=== PATIENT | male | born 1945 | race Caucasian/White ===

== ENCOUNTER 2022-10-31 12:00 | Emergency (ER) | payer OTHER ==
[2022-10-31 12:14] VITALS: BP 156/91; PULSE 85; RESP 18; TEMP 97.6; BMI 20.9
== END 2022-10-31 13:05 | disposition home or self-care (01) ==
LOC: JER 12:00 → JERFT 12:00
DX: B37.0 Candidal stomatitis (principal)
CPT/HCPCS: 99283-25